=== PATIENT | female | born 1940 | race Caucasian/White ===

== ENCOUNTER 2021-05-21 04:42 | Emergency (ER) | payer MEDICARE, OTHER ==
[2021-05-21] MEDS ORDERED: Morphine 4 MG/ML VIAL ONE ×2 (05:40→07:44)
== END 2021-05-21 08:30 | disposition home or self-care (01) ==
LOC: ERS 04:42
DX: S00.83XA Contusion of other part of head, initial encounter (principal); M79.642 Pain in left hand; M79.641 Pain in right hand; M25.532 Pain in left wrist; M25.531 Pain in right wrist; M47.812 Spondylosis without myelopathy or radiculopathy, cervical region; Z79.82 Long term (current) use of aspirin; Z79.899 Other long term (current) drug therapy; W18.30XA Fall on same level, unspecified, initial encounter
CPT/HCPCS: 72141; 96374; 96376; J2270